=== PATIENT | female | born 1950 | race Caucasian/White ===

== ENCOUNTER → 2022-06-13 10:13 | Outpatient (BNVA) | payer OTHER, SELFPAY | PROVIDERS: PCP Internal Medicine; Visit Provider Internal Medicine | DX: Z13.89 Encounter for screening for other disorder (principal) ==

== ENCOUNTER 2022-08-02 09:38 | Outpatient (REF) | payer MEDICARE, SELFPAY ==
--- NOTE | 2022-08-02 10:52 | P.BOP_ITS ---
Brief Operative Note Date of Service: 08/02/22 Pre-op diagnosis: Multinodular Thyroid Procedure: This is doctor Leny Osborne. This is an ultrasound-guided fine-needle aspiration report. Indication: Multinodular Thyroid Porcedure: Procedure was explained to the patient. Alternatives, the risk and benefits were discussed. Written consent was obtained. A time-out was also obtained. After sterile preparation, 1 ml of 1% lidocaine solution was applied subcutaneously for anesthetic effect. Then Fine-needle aspiration of a right lower pole 4.9 cm thyroid nodule was performed using direct ultrasound guidance to confirm accurate needle placement. Four aspirations were made using 27 gauge needles. Samples were submitted for cytology. One pass was dedicated for Afirma Gene sequencing radio frequency engineer testing. The patient tolerated the procedure well. Aftercare instructions were provided. Of note, what was read on her official ultrasound as 3 separate nodules, instead represents a 4.9 cm thyroid nodule that extends from the right lower lobe t hrough the isthmus into the left lower lobe. This 4.9 cm nodule was biopsied, with 2 passess on the right side and 2 passes on the left side. There is an additional 1.4 cm left mid pole spongiform nodule that did not meet indication for FNA biopsy today. Impression: Uncomplicated fine needle aspiration biopsy of a right lower pole 4.9 cm thyroid nodule under ultrasound guidance. Surgeon: Leny Osborne, DO Was an Historian Research Assistant used for this Procedure?: No Estimated blood loss (mL): 0
== END 2022-08-02 09:39 | disposition home or self-care (01) ==
LOC: HO.US 09:38
PROVIDERS: PCP Internal Medicine; Visit Provider Internal Medicine
DX: E04.2 Nontoxic multinodular goiter (principal)
CPT/HCPCS: 10005; 88172; 88173; 88177

== ENCOUNTER 2022-08-29 14:34 | Outpatient (AMB) | payer MEDICARE, SELFPAY ==
[2022-08-29 14:36] VITALS: BP 128/70; PULSE 103; BMI 34.7
--- NOTE | 2022-08-29 14:36 | MHC.OFFVIS ---
Intake Vital Signs 08/29/22 14:36 Height 5 ft 4 in Weight 202 lb 2.622 oz BMI 34.7 BP 128/70 Blood Pressure Location Rt brachial Position Sitting Pulse 103 H Pulse Source Pulse Oximeter Intake Visit Reasons: FNA Results Intake Note: Patient present for FNA results. C Application Developer Required: No Accompanied by: Daughter Allergies Penicillins Allergy (Mild, Verified 08/29/22 14:43) Unknown HPI HPI Comments History of Present Illness Details 72 YO F with a PMHx T2DM, HTN, HLD who is seen in consultation for multinodular thyroid at the request of PCP.. Pt last saw Dr. Donnelly on 08/02/22. Was initially diagnosed with multinodular thyroid in mid [address] of the head revealed incidental findings of thyroid nodules. She then underwent a dedicated thyroid US 05/30/2022 which revealed a RUP 1.2 cm, RLP 3.2 cm, LMP 1.4 cm and LLP 1.7 cm thyroid nodule. She does report swelling and tenderness in the neck. Denies dysphagia or hoarseness of voice. She denies symptoms of hyper or hypothyroidism. TSH was checked and was WNL. She denies any personal history of head or neck irradiation. Denies any family history of thyroid cancer. She is status post FNA of a right lower pole/isthmus nodule with benign cytology. She is here to discuss biopsy results [facility] Medical History Multinodular thyroid Surgical History Hx of facial fracture repair Hx of fracture of nose Hx of hysterectomy Hx of knee surgery Hx of oral surgery Hx of tubal ligation Family History Father Heart disease HTN (hypertension) Mother Enlarged heart Diabetes Social History Alcohol intake: current Alcohol intake frequency: holidays/special occasions only Patient Tobacco Use Status: Never used Tobacco Physical Exam Vital Signs: BMI result Body Mass Index 34.7 Const Other: Thyroid gland pérez full to palpation in the right lower lobe. There is no cervical adenopathy palpated. There is no discrete nodule palpated Assessment & Plan Assessment & Plan (1) Multinodular thyroid: Code(s): E04.2 - Nontoxic multinodular goiter Plan: This 72-year-old white female with a history of multinodular goiter status post FNA of a right lower pole/isthmus nodule with benign cytology. She appears to be clinically/ biochemically euthyroid. Plan is to for observation. Perhaps a thyroid ultrasound should be repeated 8 months to 1 year's time Coding Level of Care Code Est Pt Level 3 (03785) Diagnoses Multinodular thyroid E04.2
== END 2022-08-29 15:09 | disposition home or self-care (01) ==
PROVIDERS: PCP Internal Medicine; Visit Provider Internal Medicine Endocrinology, Diabetes & Metabolism
DX: E04.2 Nontoxic multinodular goiter (principal)
CPT/HCPCS: 99213

== ENCOUNTER → 2022-08-29 14:34 | Outpatient (BNVA) | payer MEDICARE, SELFPAY | PROVIDERS: PCP Internal Medicine; Visit Provider Internal Medicine Endocrinology, Diabetes & Metabolism | DX: E04.2 Nontoxic multinodular goiter (principal) | CPT/HCPCS: 99212 ==

== ENCOUNTER 2023-04-29 12:41 | Outpatient (REF) | payer MEDICARE, SELFPAY ==
--- NOTE | ~2023-04-29 | US_ITS ---
EXAMINATION: US THYROID CLINICAL INFORMATION: Nontoxic multinodular goiter. COMPARISON: None available. TECHNIQUE: Linear transducer sharif-scale and color Doppler examination with attention to the region of the thyroid. Please note that this examination was very technically difficult, limited exam due to low lying thyroid and body habitus per corporate communications specialist's statement. FINDINGS: SIZE: Measurements of the thyroid lobes and nodules are given in sagittal, anteroposterior and transverse dimensions respectively. Right Thyroid Lobe: 6.0 x 2.2 x 2.6 cm, volume 18.0 mL. Parenchyma: The gland echotexture is heterogeneous. Thyroid vascularity is normal. Left Thyroid Lobe: 6.6 x 2.2 x 2.1 cm, volume 16.0 mL. Parenchyma: The gland echotexture is heterogeneous. Thyroid vascularity is normal. Isthmus: 2.0 cm in maximum AP dimension. Estimated total number of nodules greater than or equal to 1 cm: 3. Nurse Transition nodules are described as follows: 1. Location: Right/isthmus inferior pole. Size: 4.0 x 3.0 x 3.0 cm, volume 18.8 mL. Nodule characteristics: Composition: Solid (2). Echogenicity: Cannot be determined (1). Shape: Not taller than wide (0). Margins: Extrathyroidal extension (3). Echogenic Foci: None (0). ACR TI-RADS total points: 6 ACR TI-RADS category: 4 2. Location: Left superior/mid pole. Size: 1.2 x 0.6 x 1.1 cm, volume 0.41 mL. Nodule characteristics: Composition: Mixed cystic and solid (1). Echogenicity: Isoechoic (1). Shape: Not taller than wide (0). Margins: Smooth (0). Echogenic Foci: None (0). ACR TI-RADS total points: 2 ACR TI-RADS category: 2 3. Location: Left mid lateral pole. Size: 0.9 x 0.7 x 0.8 cm, volume 0.28 mL. Nodule characteristics: Composition: Solid/almost completely solid (2). Echogenicity: Hypoechoic (2). Shape: Not taller than wide (0). Margins: Smooth (0). Echogenic Foci: Punctate echogenic foci (3). ACR TI-RADS total points: 7 ACR TI-RADS category: 5 4. Location: Left inferior pole. Size: 2.4 x 2.1 x 2.1 cm, volume 5.35 mL. Nodule characteristics: Composition: Solid (2). Echogenicity: Hypoechoic (2). Shape: Not taller than wide (0). Margins: Ill-defined (0). Echogenic Foci: None (0). ACR TI-RADS total points: 4 ACR TI-RADS category: 4 NODES: No lymphadenopathy is seen in the tissue surrounding the thyroid gland. US/US thyroid IMPRESSION: 4.0 cm right isthmus lower pole TR4 thyroid nodule and 2.4 cm left lower pole TR4 thyroid nodules meet criteria for biopsy. Fine-needle aspiration recommended if not already performed. Correlation with prior biopsy results recommended to determine further management. Please note that this examination was very technically difficult, limited exam due to low-lying thyroid and body habitus per corporate communications specialist's statement. ACR TI-RADS RECOMMENDATION REFERENCE: Ultrasound-guided fine-needle aspiration, followup ultrasound, no further follow up. * TR1 (0 point) and TR2 (2 points): No FNA or follow up. * TR3 (3 points): FNA if more than or equal to 2.5 cm in maximum dimension, followup ultrasound in 1, 3 and 5 years if 1.5 to 2.4 cm in maximum dimension. * TR4 (4-6 points): FNA if more than or equal to 1.5 cm in maximum dimension, followup ultrasound in 1, 2, 3 and 5 years if 1 to 1.4 cm in maximum dimension. * TR5 (more than or equal to 7 points): FNA if more than or equal to 1 cm in maximum dimension, followup ultrasound every year for 5 years if 0.5 to 0.9 cm in maximum dimension. * TR3, TR4 or TR5 nodules that are below the size threshold for followup receive no follow up.
== END 2023-04-29 12:42 | disposition home or self-care (01) ==
LOC: HO.HMGCX 12:41
PROVIDERS: PCP Internal Medicine; Visit Provider Internal Medicine Endocrinology, Diabetes & Metabolism
DX: E04.2 Nontoxic multinodular goiter (principal)
CPT/HCPCS: 76536

== ENCOUNTER 2023-05-30 15:33 | Outpatient (AMB) | payer MEDICARE, SELFPAY ==
--- NOTE | 2023-05-30 15:36 | A.OFFVIS_ITS ---
Intake Vital Signs 05/30/23 15:37 Height 5 ft 4 in Weight 210 lb 12.191 oz BMI 36.2 BP 140/72 H Blood Pressure Location Lt brachial Position Sitting Pulse 100 Pulse Source Pulse Oximeter Intake Visit Reasons: Multinodular thyroid-lvm Intake Note: Patient present today for Multinodular thyroid follow up visit. Windows System Admin Required: No Accompanied by: Daughter Allergies Penicillins Allergy (Mild, Verified 05/30/23 15:41) Unknown Medication List - Last Reconciled 05/30/23 by Nilo Quijano MD cholecalciferol (vitamin D3) 50 mcg PO DAILY hydrochlorothiazide 12.5 mg PO DAILY lisinopril 10 mg PO DAILY metformin 500 mg PO BID multivitamin 1 tab PO DAILY omega-3 fatty acids 35-500 mg orally daily; simvastatin 20 mg PO BEDTIME HPI HPI Comments History of Present Illness Details 72 YO F with a PMHx T2DM, HTN, HLD who i s seen in consultation for multinodular thyroid at the request of PCP.. Pt last saw Dr. Donnelly on 08/02/22. Was initially diagnosed with multinodular thyroid in mid [address] of the head revealed incidental findings of thyroid nodules. She then underwent a dedicated thyroid US 05/30/2022 which revealed a RUP 1.2 cm, RLP 3.2 cm, LMP 1.4 cm and LLP 1.7 cm thyroid nodule. She does report swelling and tenderness in the neck. Denies dysphagia or hoarseness of voice. She denies symptoms of hyper or hypothyroidism. TSH was checked and was WNL. She denies any personal history of head or neck irradiation. Denies any family history of thyroid cancer. She is status post FNA of a right lower pole/isthmus nodule with benign cytolo gy. She is here to discuss biopsy results Repeat thyroid ultrasound showed SIZE: Measurements of the thyroid lobes and nodules are given in sagittal, anteroposterior and transverse dimensions respectively. Right Thyroid Lobe: 6.0 x 2.2 x 2.6 cm, volume 18.0 mL. Parenchyma: The gland echotexture is heterogeneous. Thyroid vascularity is normal. Left Thyroid Lobe: 6.6 x 2.2 x 2.1 cm, volume 16.0 mL. Parenchyma: The gland echotexture is heterogeneous. Thyroid vascularity is normal. Isthmus: 2.0 cm in maximum AP dimension. Estimated total number of nodules greater than or equal to 1 cm: 3. Window Trimmer Apprentice nodules are described as follows: 1. Location: Right/isthmus inferior pole . Size: 4.0 x 3.0 x 3.0 cm, volume 18.8 mL. Nodule characteristics: Composition: Solid (2). Echogenicity: Cannot be determined (1). Shape: Not taller than wide (0). Margins: Extrathyroidal extension (3). Echogenic Foci: None (0). ACR TI-RADS total points: 6 ACR TI-RADS category: 4 2. Location: Left superior/mid pole. Size: 1.2 x 0.6 x 1.1 cm, volume 0.41 mL. Nodule characteristics: Composition: Mixed cystic and solid (1). Echogenicity: Isoechoic (1). Shape: Not taller than wide (0). Margins: Smooth (0). Echogenic Foci: None (0). ACR TI-RADS total points: 2 ACR TI-RADS category: 2 3. Location: Left mid lateral pole. Size: 0.9 x 0.7 x 0.8 cm, volume 0.28 mL. Nodule characteristics: Composition: Solid/almost completely solid (2). Echogenicity: Hypoechoic (2). Shape: Not taller than wide (0). Margins: Smooth (0). Echogenic Foci: Punctate echogenic foci (3). ACR TI-RADS total points: 7 ACR TI-RADS category: 5 4. Location: Left inferior pole. Size: 2.4 x 2.1 x 2.1 cm, volume 5.35 mL. Nodule characteristics: Composition: Solid (2). Echogenicity: Hypoechoic (2). Shape: Not taller than wide (0). Margins: Ill-defined (0). Echogenic Foci: None (0). ACR TI-RADS total points: 4 ACR TI-RADS category: 4 NODES: No lymphadenopathy is seen in the tissue surrounding the thyroid gland. US/US thyroid IMPRESSION: 4.0 cm right isthmus lower pole TR4 thyr oid nodule and 2.4 cm left lower pole TR4 thyroid nodules meet criteria for biopsy. Fine-needle aspiration recommended if not already performed. Correlation with prior biopsy results recommended to determine further management PFSH Medical History Multinodular thyroid Surgical History Hx of facial fracture repair Hx of fracture of nose Hx of hysterectomy Hx of knee surgery Hx of oral surgery Hx of tubal ligation Family History Father Heart disease HTN (hypertension) Mother Enlarged heart Diabetes Social History Alcohol intake: current Alcohol intake frequency: holidays/special occasions only Patient Tobacco Use Status: Never used Tobacco Physical Exam Const Other: Thyroid gland pérez full to palpation in the right lower lobe. There is no cervical adenopathy palpated. There is no discrete nodule palpated Assessment & Plan Assessment & Plan (1) Multinodular thyroid: Code(s): E04.2 - Nontoxic multinodular goiter Plan: This 72-year-old white female with a history of multinodular goiter status post FNA of a right lower pole/isthmus nodule with benign cytology. She appears to be clinically/ euthyroid. There is somewhat of a discrepancy between Dr. Donnelly ultrasound and the ultrasound performed radiology suggesting a discrete left nodule needing biopsy Plan is to discuss with patient options such as observation vs going for a 2nd opinion to sort out whether a 2nd nodule needs to be biopsied. She will get back to me as to how she wants to proceed. Will also check TSH and free T4 Coding Level of Care Code Est Pt Level 3 (43466) Diagnoses Multinodular thyroid E04.2
[2023-05-30 15:37] VITALS: BP 140/72; PULSE 100; BMI 36.2
== END 2023-05-30 16:18 | disposition home or self-care (01) ==
PROVIDERS: PCP Internal Medicine; Visit Provider Internal Medicine Endocrinology, Diabetes & Metabolism
DX: E04.2 Nontoxic multinodular goiter (principal)
CPT/HCPCS: 99213

== ENCOUNTER → 2023-05-30 15:33 | Outpatient (BNVA) | payer MEDICARE, SELFPAY | PROVIDERS: PCP Internal Medicine; Visit Provider Internal Medicine Endocrinology, Diabetes & Metabolism | DX: E04.2 Nontoxic multinodular goiter (principal) | CPT/HCPCS: 99212 ==

== ENCOUNTER 2023-10-31 10:26 | Outpatient (REF) | payer MEDICARE, SELFPAY ==
[2023-10-31 14:10] LABS: Free T4 (Free Thyroxine) 1.08 ng/dL (0.71-1.85); Thyroid Stimulating Hormone 0.52 uIU/mL (0.32-4.0)
== END 2023-10-31 10:27 | disposition home or self-care (01) ==
LOC: HO.HMGCLDS 10:26
PROVIDERS: PCP Internal Medicine; Visit Provider Internal Medicine Endocrinology, Diabetes & Metabolism
DX: E04.2 Nontoxic multinodular goiter (principal)
CPT/HCPCS: 36415; 84439; 84443

== ENCOUNTER 2023-11-07 09:54 | Outpatient (AMB) | payer MEDICARE, SELFPAY ==
--- NOTE | 2023-11-07 09:56 | A.OFFVIS_ITS ---
Vital Signs 11/07/23 09:59 Height 5 ft 4 in Weight 205 lb 0.478 oz BMI 35.2 BP 148/76 H Blood Pressure Location Rt brachial Position Sitting Pulse 90 Pulse Source Pulse Oximeter Intake Visit Reasons: Multinodular thyroid Intake Note: Patient present today for Multinodular thyroid office visit. Registered Mail Clerk Required: No Accompanied by: Daughter Allergies Penicillins Allergy (Mild, Verified 11/07/23 10:00) Unknown Medication List - Last Reconciled 11/07/23 by Ade Cruz MD cholecalciferol (vitamin D3) 50 mcg PO DAILY hydrochlorothiazide 12.5 mg PO DAILY lisinopril 10 mg PO DAILY metformin 500 mg PO BID multivitamin 1 tab PO DAILY omega-3 fatty acids 35-500 mg orally daily; simvastatin 20 mg PO BEDTIME HPI Comments Details: 73-year-old female coming in today for follow up of multinodular thyroid. Here with daughter Kera She was previously seeing Dr. Donnelly and then followed with Dr. Quijano, last visit May 2023. HPI from prior visit In 2021 CT of the head revealed incidental findings of thyroid nodule Thyroid ultrasound 05/30/2022 revealed right upper pole 1.2 cm solid hypoechoic TR 4 nodule, right lower pole 3.2 cm solid isoechoic TR 3 nodule, left midpole 1.4 cm solid hyperechoic TR 4 nodule and a left lower pole 1.7 cm solid, hypoechoic, TR 4 nodule. FNA 08/10: Of right lower pole 3.2 cm nodule was benign. thyroid ultrasound in April of 2023 which noted a 4 cm solid nodule with extrathyroidal extension TR 4 category. This is the same nodule that was biopsied in July 2022. And was benign. Ultrasound also noted left midpole 1.2 cm mixed, isoechoic TR 2 category nodule, left mid 0.9 cm solid hypoechoic, TR 5 nodule with punctate echogenic foci, and a 2.4 cm left lower pole nodule solid, hypoechoic, TR 4 category. Most recent labs from 10/31/2023 showed she is biochemically euthyroid with TSH of 0.52, free T4 of 1.08. Patient currently denies heat or cold intolerance, diarrhea or constipation, hair loss, palpitation, anxiety, weight changes, mood changes, low energy, changes in appearance of eyes or vision changes, tremors, increased diaphoresis or dry skin. ? Patient denies any difficulty swallowing, pain on swallowing or voice changes or difficulty breathing. Patient denies any history of childhood neck radiation. Denies having ever used lithium, amiodarone or biotin supplements. Patient denies any family history of thyroid cancer or thyroid disease. Non smoker Review of systems Constitutional: no fevers, chills or weight loss HEENT: no changes in vision Cardiac: No chest pain, discomfort or palpitations. Pulmonary: No SOB GI:No abdominal pain, no nausea or vomiting, no anorexia, no blood in stool : no burning micturition, dysuria or increase in urinary frequency Physical exam General: sitting comfortably in no acute distress HEENT: normocephalic/atraumatic, , moist oral mucosa Neck: supple, symmetrical, palpable 2 cms nodule on right and left side , no dorsocervical or supraclavicular fat pads Cardiac: normal heart sounds Pulm: normal breath sounds B/L, no added breath sounds Abd: not distended, no tenderness Extremities: no edema, no signs of myxedema Neuro: AAO x3, Speech: normal, no facial droop, moving all 4 extremities PFSH Medical History Multinodular thyroid Surgical History Hx of oral surgery Hx of fracture of nose Hx of tubal ligation Hx of hysterectomy Hx of knee surgery Hx of facial fracture repair Family History Father Heart disease HTN (hypertension) Mother Enlarged heart Diabetes Social History Alcohol intake: current Alcohol intake frequency: holidays/special occasions only Patient Tobacco Use Status: Never used Tobacco Results Reviewed Results Reviewed: Laboratory Tests 10/31/23 11:05 TSH 0.52 Free T4 1.08 US THYROID 05/11 I reviewed the images myself, which do show the right lower pole 4 cm nodule, however as pointed out maybe due to a difficult exam due to body habitus, it is hard to define the boundaries of this nodule to suggest whether it actually does have extrathyroidal extension or not. This has been biopsied before and was benign. The left lobe mid pole nodules do not meet criteria for biopsy. Left lower pole 2.4 cm nodule solid, hypoechoic, TR 4 nodule does meet criteria for FNA, per ANDREA this is intermediate suspicion nodule with 10-20% chance of malignancy. CLINICAL INFORMATION: Nontoxic multinodular goiter. COMPARISON: None available. TECHNIQUE: Linear transducer sharif-scale and color Doppler examination with attention to the region of the thyroid. Please note that this examination was very technically difficult, limited exam due to low lying thyroid and body habitus per transporter driver's statement. FINDINGS: SIZE: Measurements of the thyroid lobes and nodules are given in sagittal, anteroposterior and transverse dimensions respectively. Right Thyroid Lobe: 6.0 x 2.2 x 2.6 cm, volume 18.0 mL. Parenchyma: The gland echotexture is heterogeneous. Thyroid vascularity is normal. Left Thyroid Lobe: 6.6 x 2.2 x 2.1 cm, volume 16.0 mL. Parenchyma: The gland echotexture is heterogeneous. Thyroid vascularity is normal. Isthmus: 2.0 cm in maximum AP dimension. Estimated total number of nodules greater than or equal to 1 cm: 3. Fiction And Nonfiction Author nodules are described as follows: 1. Location: Right/isthmus inferior pole. Size: 4.0 x 3.0 x 3.0 cm, volume 18.8 mL. Nodule characteristics: Composition: Solid (2). Echogenicity: Cannot be determined (1). Shape: Not taller than wide (0). Margins: Extrathyroidal extension (3). Echogenic Foci: None (0). ACR TI-RADS total points: 6 ACR TI-RADS category: 4 2. Location: Left superior/mid pole. Size: 1.2 x 0.6 x 1.1 cm, volume 0.41 mL. Nodule characteristics: Composition: Mixed cystic and solid (1). Echogenicity: Isoechoic (1). Shape: Not taller than wide (0). Margins: Smooth (0). Echogenic Foci: None (0). ACR TI-RADS total points: 2 ACR TI-RADS category: 2 3. Location: Left mid lateral pole. Size: 0.9 x 0.7 x 0.8 cm, volume 0.28 mL. Nodule characteristics: Composition: Solid/almost completely solid (2). Echogenicity: Hypoechoic (2). Shape: Not taller than wide (0). Margins: Smooth (0). Echogenic Foci: Punctate echogenic foci (3). ACR TI-RADS total points: 7 ACR TI-RADS category: 5 4. Location: Left inferior pole. Size: 2.4 x 2.1 x 2.1 cm, volume 5.35 mL. Nodule characteristics: Composition: Solid (2). Echogenicity: Hypoechoic (2). Shape: Not taller than wide (0). Margins: Ill-defined (0). Echogenic Foci: None (0). ACR TI-RADS total points: 4 ACR TI-RADS category: 4 NODES: No lymphadenopathy is seen in the tissue surrounding the thyroid gland. US/US thyroid IMPRESSION: 4.0 cm right isthmus lower pole TR4 thyroid nodule and 2.4 cm left lower pole TR4 thyroid nodules meet criteria for biopsy. Fine-needle aspiration recommended if not already performed. Correlation with prior biopsy results recommended to determine further management. Please note that this examination was very technically difficult, limited exam due to low-lying thyroid and body habitus per transporter driver's statement. Assessment & Plan Assessment & Plan (1) Multinodular thyroid: Code(s): E04.2 - Nontoxic multinodular goiter Category: Medical Plan: Patient with no family history of thyroid cancer, with no personal history of head or neck radiation coming in today for follow up of multinodular goiter. She was found to have incidental thyroid nodules in 2021, subsequently ultrasound of the thyroid in April 2022 showed a right lower pole dominant 2.7 cm nodule, and a left lower pole dominant 1.7 cm nodule. The right lower pole nodule was biopsied in July of 2022 which was benign. Subsequently had a repeat ultrasound in April of 2023 which showed the right lower lobe dominant nodule now measuring up to 4 cm in size, I reviewed the images myself which do show the right lower pole 4 cm nodule, however as pointed out maybe due to a difficult exam due to body habitus, it is hard to define the boundaries of this nodule to suggest whether it actually does have extrathyroidal extension or not. This has been biopsied before and was benign. The left lobe mid pole nodules do not meet criteria for biopsy. Left lower pole 2.4 cm nodule solid, hypoechoic, TR 4 nodule does meet criteria for FNA, per ANDREA this is intermediate suspicion nodule with 10-20% chance of malignancy. She does not have any compressive symptoms. biochemically euthyroid. I explained that it is common to have thyroid nodules. About 95% of the time these nodules are benign. However if the nodule is > 1 cm in size or suspicious on ultrasound then a fine need aspiration biopsy is recommended. We discussed that a FNAB involves 4-5 passes with a small gauge needle and material obtained is sent off for cytology.If the cytopathology is benign then the nodule will be followed annually with repeat ultrasounds. However if it is suspicious or malignant, we will need to discuss further management. Indeterminate cytology can be further investigated with repeat FNA, genetic testing or empiric lobe ctomy. Malignant cytology is managed with either lobectomy or total thyroidectomy. We discussed briefly that thyroid cancer is, in most patients, an indolent disease that does not affect mortality. At This point I have a would recommend biopsy of left lower pole 2.4 cm nodule. We will arrange for FNA at next available opening of the left lower pole 2.4 cm nodule and patient will follow up with me in clinic thereafter for results and further decision making. Plan: -FNA of the left lower pole 2.4 cm nodule with Afirma in my biopsy clinic -follow up in 1-2 weeks after biopsy to discuss results Plan I spent 30 minutes in reviewing the record, seeing the patient and documenting in the medical record. Orders: Orders US biopsy thyroid Today E04.2 - Nontoxic multinodular goiter Patient Instructions: We will book you for a biopsy of the left lower thyroid nodule, and a follow up in 1-2 weeks after to discuss results Coding Level of Care Code Est Pt Level 4 (22291) Diagnoses Multinodular thyroid E04.2 Time Spent (min) 30
[2023-11-07 09:59] VITALS: BP 148/76; PULSE 90; BMI 35.2
== END 2023-11-07 10:46 | disposition home or self-care (01) ==
PROVIDERS: PCP Internal Medicine; Visit Provider Student in an Organized Health Care Education/Training Program
DX: E04.2 Nontoxic multinodular goiter (principal)
CPT/HCPCS: 99214

== ENCOUNTER → 2023-11-07 09:54 | Outpatient (BNVA) | payer MEDICARE, SELFPAY | PROVIDERS: PCP Internal Medicine; Visit Provider Student in an Organized Health Care Education/Training Program | DX: E04.2 Nontoxic multinodular goiter (principal) | CPT/HCPCS: 99212 ==

== ENCOUNTER 2023-12-04 10:39 | Outpatient (REF) | payer MEDICARE, SELFPAY ==
--- NOTE | 2023-12-04 11:49 | PM.PROC ---
Brief Operative Note Date of procedure: 12/04/23 Pre-op diagnosis: left lower lobe 2.4 cm thyroid nodule FNA Post-op diagnosis: same Procedure: THYROID FINE NEEDLE ASPIRATION PROCEDURE NOTE ? PROCEDURE PERFORMED: Ultrasound-guided FNA of thyroid nodule ? OPERATORS: Dr. Ade Cruz ? INDICATION: left lower lobe 2.4 cm thyroid nodule FNA; FNA performed to assess for malignancy ? DESCRIPTION OF PROCEDURE: The indications for FNA (to assess for malignancy) were reviewed with the patient in detail. Potential complications (e.g., bleeding, infection, damage to local structures, absence of clear diagnosis after FNA) were reviewed. Alternatives to FNA including conservative observation or surgery were described. The patient understood and agreed to proceed. This was documented by the signing of the written informed consent form. A time-out was performed to confirm the patient's identity and the site of planned FNA. The nodule of interest was identified using ultrasound (14 MHz linear array probe). The site of FNA was then draped in the usual fashion and carefully cleaned and prepared using alcohol swabs. The skin at the previously-identified site of needle insertion were iced and sprayed with numbing spray. Under ultrasound guidance, _4_ passes were performed using a 3.5-inch, 22-gauge needle, and sample was obtained via capillary action. Patient has a very short neck with deep location of the nodule making the access quite challenging. The needle tip was clearly visualized to be within the nodule at the time of sampling for _3_ of __4 passes. The patient tolerated the procedure well. There were no immediate complications. A small adhesive bandage was applied, and the patient was advised to take acetaminophen (rather than NSAIDs) for any discomfort and to report any signs of inflammation/infection or marked swelling. IMPRESSION: Technically successful ultrasound-guided fine needle aspiration of left lower lobe 2.4 cm thyroid nodule. PLAN: The patient was advised that I will provide follow-up regarding the cytology result and any subsequent plans. Dr. Ade Cruz Condition: stable Disposition: same day
== END 2023-12-04 10:40 | disposition home or self-care (01) ==
LOC: HO.US 10:39
PROVIDERS: PCP Internal Medicine; Visit Provider Student in an Organized Health Care Education/Training Program
DX: E04.2 Nontoxic multinodular goiter (principal)
CPT/HCPCS: 10005; 88173

== ENCOUNTER → 2023-12-04 10:39 | Outpatient (BNV) | payer MEDICARE, SELFPAY | PROVIDERS: PCP Internal Medicine; Visit Provider Student in an Organized Health Care Education/Training Program | DX: E04.2 Nontoxic multinodular goiter (principal) | CPT/HCPCS: 10005 ==

== ENCOUNTER 2023-12-19 11:20 | Outpatient (AMB) | payer MEDICARE, SELFPAY ==
[2023-12-19 11:27] VITALS: BP 136/84; PULSE 91; BMI 35.5
--- NOTE | 2023-12-19 11:27 | A.OFFVIS_ITS ---
Vital Signs 3 12/19/23 11:27 Height 5 ft 4 in Weight 207 lb 0.225 oz BMI 35.5 BP 136/84 Blood Pressure Location Rt brachial Position Sitting Pulse 91 Pulse Source Pulse Oximeter Intake Visit Reasons: f/u post biopsy-conf Intake Note: Patient present today for biopsy results. Sliver Lapper Required: No Accompanied by: Daughter Allergies Penicillins Allergy (Mild, Verified 12/19/23 11:32) Unknown HPI Comments Details: 73-year-old female coming in today for follow up of multinodular thyroid. She is here today to discuss the results of her FNA biopsy. Here with daughter Kera HPI from prior visit In 2021 CT of the head revealed incidental findings of thyroid nodule Thyroid ultrasound 05/30/2022 revealed right upper pole 1.2 cm solid hypoechoic TR 4 nodule, right lower pole 3.2 cm solid isoechoic TR 3 nodule, left midpole 1.4 cm solid hyperechoic TR 4 nodule and a left lower pole 1.7 cm solid, hypoechoic, TR 4 nodule. FNA 08/10: Of right lower pole 3.2 cm nodule was benign. thyroid ultrasound in April of 2023 which noted a 4 cm solid nodule with extrathyroidal extension TR 4 category. This is the same nodule that was biopsied in July 2022. And was benign. Ultrasound also noted left midpole 1.2 cm mixed, isoechoic TR 2 category nodule, left mid 0.9 cm solid hypoechoic, TR 5 nodule with punctate echogenic foci, and a 2.4 cm left lower pole nodule solid, hypoechoic, TR 4 category. Underwent FNA of the left lower 2.4 cm nodule on 12/05/2023 which came back benign [place] category 2. Most recent labs from 10/31/2023 showed she is biochemically euthyroid with TSH of 0.52, free T4 of 1.08. Patient currently denies heat or cold intolerance, diarrhea or constipation, hair loss, palpitation, anxiety, weight changes, mood changes, low energy, changes in appearance of eyes or vision changes, tremors, increased diaphoresis or dry skin. ? Patient denies any difficulty swallowing, pain on swallowing or voice changes or difficulty breathing. Patient denies any history of childhood neck radiation. Denies having ever used lithium, amiodarone or biotin supplements. Patient denies any family history of thyroid cancer or thyroid disease. Non smoker Review of systems Constitutional: no fevers, chills or weight loss HEENT: no changes in vision Cardiac: No chest pain, discomfort or palpitations. Pulmonary: No SOB GI:No abdominal pain, no nausea or vomiting, no anorexia, no blood in stool : no burning micturition, dysuria or increase in urinary frequency Physical exam General: sitting comfortably in no acute distress HEENT: normocephalic/atraumatic, , moist oral mucosa Neck: supple, symmetrical, palpable 2 cms nodule on right and left side , no dorsocervical or supraclavicular fat pads Cardiac: normal heart sounds Pulm: normal breath sounds B/L, no added breath sounds Abd: not distended, no tenderness Extremities: no edema, no signs of myxedema Neuro: AAO x3, Speech: normal, no facial droop, moving all 4 extremities Laboratory Tests 10/31/23 11:05 TSH 0.52 Free T4 1.08 US THYROID 05/11 I reviewed the images myself, which do show the right lower pole 4 cm nodule, however as pointed out maybe due to a difficult exam due to body habitus, it is hard to define the boundaries of this nodule to suggest whether it actually does have extrathyroidal extension or not. This has been biopsied before and was benign. The left lobe mid pole nodules do not meet criteria for biopsy. Left lower pole 2.4 cm nodule solid, hypoechoic, TR 4 nodule does meet criteria for FNA, per ANDREA this is intermediate suspicion nodule with 10-20% chance of malignancy. CLINICAL INFORMATION: Nontoxic multinodular goiter. COMPARISON: None available. TECHNIQUE: Linear transducer sharif-scale and color Doppler examination with attention to the region of the thyroid. Please note that this examination was very technically difficult, limited exam due to low lying thyroid and body habitus per label machine operator's statement. FINDINGS: SIZE: Measurements of the thyroid lobes and nodules are given in sagittal, anteroposterior and transverse dimensions respectively. Right Thyroid Lobe: 6.0 x 2.2 x 2.6 cm, volume 18.0 mL. Parenchyma: The gland echotexture is heterogeneous. Thyroid vascularity is normal. Left Thyroid Lobe: 6.6 x 2.2 x 2.1 cm, volume 16.0 mL. Parenchyma: The gland echotexture is heterogeneous. Thyroid vascularity is normal. Isthmus: 2.0 cm in maximum AP dimension. Estimated total number of nodules greater than or equal to 1 cm: 3. Net Web Developer nodules are described as follows: 1. Location: Right/isthmus inferior pole. Size: 4.0 x 3.0 x 3.0 cm, volume 18.8 mL. Nodule characteristics: Composition: Solid (2). Echogenicity: Cannot be determined (1). Shape: Not taller than wide (0). Margins: Extrathyroidal extension (3). Echogenic Foci: None (0). ACR TI-RADS total points: 6 ACR TI-RADS category: 4 2. Location: Left superior/mid pole. Size: 1.2 x 0.6 x 1.1 cm, volume 0.41 mL. Nodule characteristics: Composition: Mixed cystic and solid (1). Echogenicity: Isoechoic (1). Shape: Not taller than wide (0). Margins: Smooth (0). Echogenic Foci: None (0). ACR TI-RADS total points: 2 ACR TI-RADS category: 2 3. Location: Left mid lateral pole. Size: 0.9 x 0.7 x 0.8 cm, volume 0.28 mL. Nodule characteristics: Composition: Solid/almost completely solid (2). Echogenicity: Hypoechoic (2). Shape: Not taller than wide (0). Margins: Smooth (0). Echogenic Foci: Punctate echogenic foci (3). ACR TI-RADS total points: 7 ACR TI-RADS category: 5 4. Location: Left inferior pole. Size: 2.4 x 2.1 x 2.1 cm, volume 5.35 mL. Nodule characteristics: Composition: Solid (2). Echogenicity: Hypoechoic (2). Shape: Not taller than wide (0). Margins: Ill-defined (0). Echogenic Foci: None (0). ACR TI-RADS total points: 4 ACR TI-RADS category: 4 NODES: No lymphadenopathy is seen in the tissue surrounding the thyroid gland. US/US thyroid IMPRESSION: 4.0 cm right isthmus lower pole TR4 thyroid nodule and 2.4 cm left lower pole TR4 thyroid nodules meet criteria for biopsy. Fine-needle aspiration recommended if not already performed. Correlation with prior biopsy results recommended to determine further management. Please note that this examination was very technically difficult, limited exam due to low-lying thyroid and body habitus per label machine operator's statement. PFSH Medical History Multinodular thyroid Surgical History Hx of tooth extraction Hx of oral surgery Hx of fracture of nose Hx of tubal ligation Hx of hysterectomy Hx of knee surgery Hx of facial fracture repair Family History Father Heart disease HTN (hypertension) Mother Enlarged heart Diabetes Social History Alcohol intake: current Alcohol intake frequency: holidays/special occasions only Patient Tobacco Use Status: Never used Tobacco Physical Exam Vital Signs: Last Vital Signs Pulse 91 12/19/23 11:27 BP 136/84 12/19/23 11:27 BMI result Body Mass Index 35.5 Assessment & Plan Assessment & Plan (1) Multinodular thyroid: Code(s): E04.2 - Nontoxic multinodular goiter Category: Medical Plan: Patient with no family history of thyroid cancer, with no personal history of head or neck radiation coming in today for follow up of multinodular goiter. She was found to have incidental thyroid nodules in 2021, subsequently ultrasound of the thyroid in April 2022 showed a right lower pole dominant 2.7 cm nodule, and a left lower pole dominant 1.7 cm nodule. The right lower pole nodule was biopsied in July of 2022 which was benign. Subsequently had a repeat ultrasound in April of 2023 which showed the right lower lobe dominant nodule now measuring up to 4 cm in size, I reviewed the images myself which do show the right lower pole 4 cm nodule, however as pointed out maybe due to a difficult exam due to body habitus, it is hard to define the boundaries of this nodule to suggest whether it actually does have extrathyroidal extension or not. This has been biopsied before and was benign. The left lobe mid pole nodules do not meet criteria for biopsy. Left lower pole 2.4 cm nodule solid, hypoechoic, TR 4 nodule does meet criteria for FNA, per ANDREA this is intermediate suspicion nodule with 10-20% chance of malignancy. She underwent biopsy of the left lower 2.4 cm nodule on 12/04/2023 which came back as benign cytology [place] category 2. She does not have any compressive symptoms. biochemically euthyroid. I counseled the patient that benign results translate to less than 3% chance of malignancy. At this point we will plan to repeat her ultrasound in 1 year from now. Plan: -repeat thyroid ultrasound in November 2024 -TSH, free T4 to be done before follow up in 1 year Plan See above Orders: Orders 2 US thyroid 1 Year E04.2 - Nontoxic multinodular goiter Thyroid Stimulating Hormone 1 Year E04.2 - Nontoxic multinodular goiter Free T4 (Free Thyroxine) 1 Year E04.2 - Nontoxic multinodular goiter Patient Instructions: Do blood work and thyroid ultrasound in 1 year and follow up with me after that Coding Level of Care Code Est Pt Level 3 (79017) Diagnoses Multinodular thyroid E04.2
== END 2023-12-19 12:01 | disposition home or self-care (01) ==
LOC: HO.ENCR 11:20
PROVIDERS: PCP Internal Medicine; Visit Provider Student in an Organized Health Care Education/Training Program
DX: E04.2 Nontoxic multinodular goiter (principal)
CPT/HCPCS: 99213

== ENCOUNTER → 2023-12-19 11:20 | Outpatient (BNVA) | payer MEDICARE, SELFPAY | PROVIDERS: PCP Internal Medicine; Visit Provider Student in an Organized Health Care Education/Training Program | DX: E04.2 Nontoxic multinodular goiter (principal) | CPT/HCPCS: 99212 ==

== ENCOUNTER 2024-12-23 14:55 | Outpatient (REF) | payer MEDICARE, SELFPAY ==
--- NOTE | ~2024-12-23 | US_ITS ---
EXAMINATION: US THYROID CLINICAL INFORMATION: E04.2 nontoxic multinodular goiter. COMPARISON: April 29, 2023. TECHNIQUE: Linear transducer grayscale and color Doppler examination with attention to the region of the thyroid. FINDINGS: SIZE: Measurements of the thyroid lobes and nodules are given in sagittal, anteroposterior and transverse dimensions respectively. Right Thyroid Lobe: 6.4 x 2.7 x 1.7 cm, volume 16 mL. Previous: 6.0 x 2.2 x 2.6 cm, volume: 18 cc. Parenchyma: The gland echotexture is heterogeneous. Thyroid vascularity is normal. Left Thyroid Lobe: 5.4 x 2.2 x 1.8 cm, volume 11 mL. Previous: 6.6 x 2.2 x 2.1 cm, volume: 16 cc. Parenchyma: The gland echotexture is heterogeneous. Thyroid vascularity is normal. Isthmus: 2.5 cm in maximum AP dimension. Previous: 2.0 cm. Estimated total number of nodules greater than or equal to 1 cm: 2. Crystal Grower nodules are described as follows: 1. Location: Lower pole, left lobe. Size: 1.2 x 0.7 x 1.4 cm, volume 0.64 mL. Previous: 1.2 x 0.63 x 1.1 cm, volume: 0.41 cc. Nodule characteristics: Composition: Solid (2). Echogenicity: Hypoechoic (2). Shape: Not taller than wide (0). Margins: Smooth (0). Echogenic Foci: None (0). ACR TI-RADS total points: 4 ACR TI-RADS category: 4 2. Location: Midportion left lobe. Size: 0.7 x 0.45 x 0.77 cm, volume 0.13 mL. Previous: 0.9 x 0.7 x 0.8 cm, volume: 0.28 cc. Nodule characteristics: Composition: Solid (2). Echogenicity: Hypoechoic (2). Shape: Not taller than wide (0). Margins: Smooth (0). Echogenic Foci: None (0). ACR TI-RADS total points: 4 ACR TI-RADS category: 4 3. Location: Isthmus. Size: 1.6 x 1.4 cm, volume not calculated . Nodule characteristics: Composition: Cystic(0). Echogenicity: Shape: Margins: Echogenic Foci: ACR TI-RADS total points: ACR TI-RADS category: NODES: No lymphadenopathy is seen in the tissue surrounding the thyroid gland. US/US thyroid IMPRESSION: ACR TI RADS 4. Limited evaluation of the cystic lesion in the isthmus ACR TI-RADS RECOMMENDATION REFERENCE: Ultrasound-guided fine-needle aspiration, followup ultrasound, no further follow up. * TR1 (0 point) and TR2 (2 points): No FNA or follow up. * TR3 (3 points): FNA if more than or equal to 2.5 cm in maximum dimension, followup ultrasound in 1, 3 and 5 years if 1.5 to 2.4 cm in maximum dimension. * TR4 (4-6 points): FNA if more than or equal to 1.5 cm in maximum dimension, followup ultrasound in 1, 2, 3 and 5 years if 1 to 1.4 cm in maximum dimension. * TR5 (more than or equal to 7 points): FNA if more than or equal to 1 cm in maximum dimension, followup ultrasound every year for 5 years if 0.5 to 0.9 cm in maximum dimension. * TR3, TR4 or TR5 nodules that are below the size threshold for followup receive no follow up. Electronically signed by: Javy Layne MD 12/23/2024 03:30 PM SHELDON BREWER
--- OUTSIDE RECORDS SUMMARY | 2024-12-23 18:01 | XMS_ITS | Continuity of Care Document ---
Author Organization [facility] [address] [place] [address] Phone [phone] Care Team Providers Care Double End Production Grinder Name Role Phone Gela Morales Care Team Information Roundhouse Supervisor [phone] Social History Type Date Description Comments Sex Female Sex Unknown Medical Devices Description No Information Available Encounters Description No Information Available Assessments Description No Information Available Plan of Treatment No Information Available Functional Status Description No Information Available Mental Status Description No Information Available Referrals Description No Information Available
== END 2024-12-23 14:56 | disposition home or self-care (01) ==
LOC: HO.HMGCX 14:55
PROVIDERS: PCP Internal Medicine; Visit Provider Student in an Organized Health Care Education/Training Program
DX: E04.2 Nontoxic multinodular goiter (principal)
CPT/HCPCS: 76536

== ENCOUNTER → 2024-12-23 14:57 | Outpatient (BNV) | payer MEDICARE, SELFPAY | PROVIDERS: PCP Internal Medicine; Visit Provider Radiology Diagnostic Radiology | DX: E04.2 Nontoxic multinodular goiter (principal) | CPT/HCPCS: 76536 ==

== ENCOUNTER 2025-02-05 10:53 | Outpatient (AMB) | payer MEDICARE, SELFPAY ==
--- NOTE | 2025-02-05 10:56 | MHC.OFFVIS ---
Vital Signs 02/05/25 10:57 Height 5 ft 4 in Weight 189 lb 9.561 oz BMI 32.5 BP 118/78 Blood Pressure Location Rt brachial Position Sitting Pulse 74 Pulse Source Pulse Oximeter Pulse Oximetry (%) 96 Oxygen Delivery Method Room Air Intake Visit Reasons: multinodular thyroid Intake Note: Patient presents here today for Multinodular thyroid follow-up after completion of work-up. Last seen by Dr Anthony MD Thyroid Ultrasound: Completed on 12/23/2024 Thyroid Function Tests: Not Completed Mobile Product Manager Required: No Accompanied by: Daughter Allergies Penicillins Allergy (Mild, Verified 02/05/25 11:00) Unknown HPI Comments Details: 73-year-old female coming in today for follow up of multinodular thyroid. She is here today to discuss the results of her FNA biopsy. Here with daughter Kera HPI from prior visit In 2021 CT of the head revealed incidental findings of thyroid nodule Thyroid ultrasound 05/30/2022 revealed right upper pole 1.2 cm solid hypoechoic TR 4 nodule, right lower pole 3.2 cm solid isoechoic TR 3 nodule, left midpole 1.4 cm solid hyperechoic TR 4 nodule and a left lower pole 1.7 cm solid, hypoechoic, TR 4 nodule. FNA 08/10: Of right lower pole 3.2 cm nodule was benign. thyroid ultrasound in April of 2023 which noted a 4 cm solid nodule with extrathyroidal extension TR 4 category. This is the same nodule that was biopsied in July 2022. And was benign. Ultrasound also noted left midpole 1.2 cm mixed, isoechoic TR 2 category nodule, left mid 0.9 cm solid hypoechoic, TR 5 nodule with punctate echogenic foci, and a 2.4 cm left lower pole nodule solid, hypoechoic, TR 4 category. Underwent FNA of the left lower 2.4 cm nodule on 12/05/2023 which came back benign Blanchard category 2. Most recent labs from 10/31/2023 showed she is biochemically euthyroid with TSH of 0.52, free T4 of 1.08. Interval history: Patient reports feeling well overall She did have a pneumonia in august 2024, for which she required hopsitalization She forgot to have the blood work done prior to the visit Patient currently denies heat or cold intolerance, diarrhea or constipation, hair loss, palpitation, anxiety, weight changes, mood changes, low energy, changes in appearance of eyes or vision changes, tremors, increased diaphoresis or dry skin. ? Patient denies any difficulty swallowing, pain on swallowing or voice changes or difficulty breathing. Patient denies any history of childhood neck radiation. Denies having ever used lithium, amiodarone or biotin supplements. Patient denies any family history of thyroid cancer or thyroid disease. Non smoker Physical exam: General: Well appearing. NAD. Neck/Thyroid: Thyroid not palpable, no nodules. CV: RRR, no murmur. No edema. Resp:Lungs clear to auscultation bilaterally Abdomen: Soft, nontender. nondistended Extremities/Neuro: No weakness or tremor of outstretched hands Laboratory Tests 10/31/23 11:05 TSH 0.52 Free T4 1.08 Thyroid ultrasound 12/23/2024 COMPARISON: April 29, 2023. TECHNIQUE: Linear transducer grayscale and color Doppler examination with attention to the region of the thyroid. FINDINGS: SIZE: Measurements of the thyroid lobes and nodules are given in sagittal, anteroposterior and transverse dimensions respectively. Right Thyroid Lobe: 6.4 x 2.7 x 1.7 cm, volume 16 mL. Previous: 6.0 x 2.2 x 2.6 cm, volume: 18 cc. Parenchyma: The gland echotexture is heterogeneous. Thyroid vascularity is normal. Left Thyroid Lobe: 5.4 x 2.2 x 1.8 cm, volume 11 mL. Previous: 6.6 x 2.2 x 2.1 cm, volume: 16 cc. Parenchyma: The gland echotexture is heterogeneous. Thyroid vascularity is normal. Isthmus: 2.5 cm in maximum AP dimension. Previous: 2.0 cm. Estimated total number of nodules greater than or equal to 1 cm: 2. Screw Machine Repairer nodules are described as follows: 1. Location: Lower pole, left lobe. Size: 1.2 x 0.7 x 1.4 cm, volume 0.64 mL. Previous: 1.2 x 0.63 x 1.1 cm, volume: 0.41 cc. Nodule characteristics: Composition: Solid (2). Echogenicity: Hypoechoic (2). Shape: Not taller than wide (0). Margins: Smooth (0). Echogenic Foci: None (0). ACR TI-RADS total points: 4 ACR TI-RADS category: 4 2. Location: Midportion left lobe. Size: 0.7 x 0.45 x 0.77 cm, volume 0.13 mL. Previous: 0.9 x 0.7 x 0.8 cm, volume: 0.28 cc. Nodule characteristics: Composition: Solid (2). Echogenicity: Hypoechoic (2). Shape: Not taller than wide (0). Margins: Smooth (0). Echogenic Foci: None (0). ACR TI-RADS total points: 4 ACR TI-RADS category: 4 3. Location: Isthmus. Size: 1.6 x 1.4 cm, volume not calculated . Nodule characteristics: Composition: Cystic(0). Echogenicity: Shape: Margins: Echogenic Foci: ACR TI-RADS total points: ACR TI-RADS category: NODES: No lymphadenopathy is seen in the tissue surrounding the thyroid gland. IMPRESSION: ACR TI RADS 4. Limited evaluation of the cystic lesion in the isthmus US THYROID 05/11 I reviewed the images myself, which do show the right lower pole 4 cm nodule, however as pointed out maybe due to a difficult exam due to body habitus, it is hard to define the boundaries of this nodule to suggest whether it actually does have extrathyroidal extension or not. This has been biopsied before and was benign. The left lobe mid pole nodules do not meet criteria for biopsy. Left lower pole 2.4 cm nodule solid, hypoechoic, TR 4 nodule does meet criteria for FNA, per NADREA this is intermediate suspicion nodule with 10-20% chance of malignancy. CLINICAL INFORMATION: Nontoxic multinodular goiter. COMPARISON: None available. TECHNIQUE: Linear transducer sharif-scale and color Doppler examination with attention to the region of the thyroid. Please note that this examination was very technically difficult, limited exam due to low lying thyroid and body habitus per bee worker's statement. FINDINGS: SIZE: Measurements of the thyroid lobes and nodules are given in sagittal, anteroposterior and transverse dimensions respectively. Right Thyroid Lobe: 6.0 x 2.2 x 2.6 cm, volume 18.0 mL. Parenchyma: The gland echotexture is heterogeneous. Thyroid vascularity is normal. Left Thyroid Lobe: 6.6 x 2.2 x 2.1 cm, volume 16.0 mL. Parenchyma: The gland echotexture is heterogeneous. Thyroid vascularity is normal. Isthmus: 2.0 cm in maximum AP dimension. Estimated total number of nodules greater than or equal to 1 cm: 3. Screw Machine Repairer nodules are described as follows: 1. Location: Right/isthmus inferior pole. Size: 4.0 x 3.0 x 3.0 cm, volume 18.8 mL. Nodule characteristics: Composition: Solid (2). Echogenicity: Cannot be determined (1). Shape: Not taller than wide (0). Margins: Extrathyroidal extension (3). Echogenic Foci: None (0). ACR TI-RADS total points: 6 ACR TI-RADS category: 4 2. Location: Left superior/mid pole. Size: 1.2 x 0.6 x 1.1 cm, volume 0.41 mL. Nodule characteristics: Composition: Mixed cystic and solid (1). Echogenicity: Isoechoic (1). Shape: Not taller than wide (0). Margins: Smooth (0). Echogenic Foci: None (0). ACR TI-RADS total points: 2 ACR TI-RADS category: 2 3. Location: Left mid lateral pole. Size: 0.9 x 0.7 x 0.8 cm, volume 0.28 mL. Nodule characteristics: Composition: Solid/almost completely solid (2). Echogenicity: Hypoechoic (2). Shape: Not taller than wide (0). Margins: Smooth (0). Echogenic Foci: Punctate echogenic foci (3). ACR TI-RADS total points: 7 ACR TI-RADS category: 5 4. Location: Left inferior pole. Size: 2.4 x 2.1 x 2.1 cm, volume 5.35 mL. Nodule characteristics: Composition: Solid (2). Echogenicity: Hypoechoic (2). Shape: Not taller than wide (0). Margins: Ill-defined (0). Echogenic Foci: None (0). ACR TI-RADS total points: 4 ACR TI-RADS category: 4 NODES: No lymphadenopathy is seen in the tissue surrounding the thyroid gland. US/US thyroid IMPRESSION: 4.0 cm right isthmus lower pole TR4 thyroid nodule and 2.4 cm left lower pole TR4 thyroid nodules meet criteria for biopsy. Fine-needle aspiration recommended if not already performed. Correlation with prior biopsy results recommended to determine further management. Please note that this examination was very technically difficult, limited exam due to low-lying thyroid and body habitus per bee worker's statement. [facility] Medical History Multinodular thyroid Surgical History Hx of tooth extraction Hx of oral surgery Hx of fracture of nose Hx of tubal ligation Hx of hysterectomy Hx of knee surgery Hx of facial fracture repair Family History Father Heart disease HTN (hypertension) Mother Enlarged heart Diabetes Social History Alcohol intake: current Alcohol intake frequency: holidays/special occasions only Patient Tobacco Use Status: Never used Tobacco Physical Exam Vital Signs: Last Vital Signs Pulse 74 02/05/25 10:57 BP 118/78 02/05/25 10:57 Pulse Ox 96 02/05/25 10:57 Oxygen Delivery Method Room Air 02/05/25 10:57 BMI result Body Mass Index 32.5 Assessment & Plan Assessment & Plan (1) Multinodular thyroid: Code(s): E04.2 - Nontoxic multinodular goiter Category: Medical Plan: Patient with no family history of thyroid cancer, with no personal history of head or neck radiation coming in today for follow up of multinodular goiter. She was found to have incidental thyroid nodules in 2021, subsequently ultrasound of the thyroid in April 2022 showed a right lower pole dominant 2.7 cm nodule, and a left lower pole dominant 1.7 cm nodule. The right lower pole nodule was biopsied in July of 2022 which was benign. Subsequently had a repeat ultrasound in April of 2023 which showed the right lower lobe dominant nodule now measuring up to 4 cm in size, I reviewed the images myself which do show the right lower pole 4 cm nodule, however as pointed out maybe due to a difficult exam due to body habitus, it is hard to define the boundaries of this nodule to suggest whether it actually does have extrathyroidal extension or not. This has been biopsied before and was benign. The left lobe mid pole nodules do not meet criteria for biopsy. Left lower pole 2.4 cm nodule solid, hypoechoic, TR 4 nodule does meet criteria for FNA, per ANDREA this is intermediate suspicion nodule with 10-20% chance of malignancy. She underwent biopsy of the left lower 2.4 cm nodule on 12/04/2023 which came back as benign cytology Blanchard category 2. She does not have any compressive symptoms. biochemically euthyroid. Based on the recent ultrasound report from 12/23/2024, which shows stability in nodule size and volume. The current findings do not warrant a biopsy at this time. Plan: -repeat thyroid ultrasound in November 2025 -TSH, free T4 now -Follow up in 1 year Plan 35 minutes spent reviewing previous records, labs, imaging, education and documenting in the chart Orders: Orders Free T4 (Free Thyroxine) Today E04.2 - Nontoxic multinodular goiter Thyroid Stimulating Hormone Today E04.2 - Nontoxic multinodular goiter Coding Level of Care Code Est Pt Level 4 (87345) Add On Problem Visit Only Diagnoses Multinodular thyroid E04.2
[2025-02-05 10:57] VITALS: BP 118/78; PULSE 74; O2SAT 96; BMI 32.5
== END 2025-02-05 11:29 | disposition home or self-care (01) ==
LOC: HO.ENCR 10:54
PROVIDERS: PCP Internal Medicine; Visit Provider Student in an Organized Health Care Education/Training Program
DX: E04.2 Nontoxic multinodular goiter (principal)
CPT/HCPCS: 99214; G2211

== ENCOUNTER 2025-02-05 10:53 | Outpatient (REF) | payer MEDICARE, SELFPAY ==
[2025-02-05 13:48] LABS: Free T4 (Free Thyroxine) 1.10 ng/dL (0.71-1.85); Free T4 (Free Thyroxine) 1.14 ng/dL (0.71-1.85); Thyroid Stimulating Hormone 0.52 uIU/mL (0.32-4.0)
== END 2025-02-05 10:54 | disposition home or self-care (01) ==
LOC: HO.10HDL 10:53
PROVIDERS: PCP Internal Medicine; Visit Provider Student in an Organized Health Care Education/Training Program
DX: E04.2 Nontoxic multinodular goiter (principal)
CPT/HCPCS: 36415; 84439; 84443; 84445; 99212